=== PATIENT | male | born 1950 | race Caucasian/White ===

== ENCOUNTER 2018-09-07 11:19 | Day surgery (SDC) | payer OTHER ==
[~2018-09-07 11:19] MED LIST: Lactated Ringers 1,000 ML IV SCH
[2018-09-07] MEDS ORDERED: Midazolam 1 MG/ML 2 ML SDV ONE (11:57)
[2018-09-07] MEDS ORDERED: Propofol 200 MG/20 ML SDV ONE (11:57)
[2018-09-07] MEDS ORDERED: fentaNYL 100 MCG/2 ML SDV ONE (11:57)
--- NOTE | 2018-09-07 12:02 | PCM.PREANE ---
Preanesthetic Assessment - Anesthesia/Transfusion/Family Hx Anesthesia History: Prior Anesthesia Without Reaction Family History of Anesthesia Reaction: No Transfusion History: No Prior Transfusion(s) Intubation History: Unknown - Review of Systems General: No Symptoms Pulmonary: No Symptoms Cardiovascular: No Symptoms Gastrointestinal: No Symptoms, Other (h/o left colon polyp 3 years ago) Neurological: No Symptoms Other: Reports: None - Physical Assessment Height: 5 ft 10 in Weight: 79.379 kg ASA Class: 1 Mental Status: Alert & Oriented x3 Airway Class: Mallampati = 2 Dentition: Reports: Dentures (upper and lower) Thyro-Mental Finger Breadths: 3 Mouth Opening Finger Breadths: 3 ROM/Head Extension: Limited/Partial Lungs: Clear to Auscultation, Normal Respiratory Effort Cardiovascular: Regular Rate, Regular Rhythm - Allergies Allergies/Adverse Reactions: Allergies Allergy/AdvReac Type Severity Reaction Status Date / Time Penicillins Allergy Hives Verified 09/02/18 09:59 venom-honey bee Allergy Anaphylactic Verified 09/02/18 09:59 [bee venom (honey bee)] Shock - Blood Blood Available: No - Anesthesia Plan Pre-Op Medication Ordered: None - Acknowledgements Anesthesia Type Planned: MAC Pt an Appropriate Candidate for the Planned Anesthesia: Yes Alternatives and Risks of Anesthesia Discussed w Pt/Guardian: Yes Pt/Guardian Understands and Agrees with Anesthesia Plan: Yes PreAnesthesia Questionnaire HEENT History: Reports: Hard of Hearing, Other (See Below) Other HEENT History: has sourav hearing aids, reading glasses, has top and bottom dentures Cardiovascular History: Reports: None Respiratory History: Reports: None Gastrointestinal History: Reports: Colon Polyp Genitourinary History: Reports: None Musculoskeletal History: Reports: Fracture Other Musculoskeletal History: hx fx left wrist Neurological History: Reports: None Psychiatric History: Reports: None Endocrine/Metabolic History: Reports: None Hematologic History: Reports: None Immunologic History: Reports: None Oncologic (Cancer) History: Reports: None Dermatologic History: Reports: None - Infectious Disease History Infectious Disease History: Reports: Chicken Pox, Measles, Mumps, Shingles - Past Surgical History HEENT Surgical History: Reports: None Cardiovascular Surgical History: Reports: None Respiratory Surgical History: Reports: None GI Surgical History: Reports: Colonoscopy (about 3 years ago) Male Surgical History: Reports: None Endocrine Surgical History: Reports: None Neurological Surgical History: Reports: C-Spine Other Neurological Surgeries/Procedures: hx neck surgery, 3 level posterior cervical fusion (cadaver bone) Musculoskeletal Surgical History: Reports: Other (See Below) Other Musculoskeletal Surgeries/Procedures:: hx surgical repair of fx wrist, left hand surgery Oncologic Surgical History: Reports: None Dermatological Surgical History: Reports: None - SUBSTANCE USE Smoking Status *Q: Never Smoker Days Per Week of Alcohol Use: 7 Number of Drinks Per Day: 1 Total Drinks Per Week: 7 Recreational Drug Use History: No - HOME MEDS Home Medications: Home Meds EPINEPHrine [Epipen] 1 injection SUBCUT ASDIRECTED PRN 07/17/15 [History] Sildenafil Citrate [Viagra] 100 mg PO ASDIRECTED PRN 07/17/15 [History] - CURRENT (IN HOUSE) MEDS Current Meds: Current Medications Lactated Ringer's (Ringers, Lactated) 1,000 mls @ 125 mls/hr IV ASDIRECTED PAUL Discontinued Medications Fentanyl (Sublimaze) Confirm Administered Dose 100 mcg .ROUTE .STK-MED ONE Stop: 09/07/18 11:58 Midazolam HCl (Versed 1 Mg/Ml) Confirm Administered Dose 2 mg .ROUTE .STK-MED ONE Stop: 09/07/18 11:58 Propofol (Diprivan 20 Ml) Confirm Administered Dose 400 mg .ROUTE .STK-MED ONE Stop: 09/07/18 11:58
[2018-09-07] MEDS ORDERED: Glycopyrrolate 0.2 MG/ML SDV ONE (12:48)
--- NOTE | 2018-09-07 13:17 | PCM.OPNOTE ---
- General Post-Op/Procedure Note Date of Surgery/Procedure: 09/07/18 Operative Procedure(s): egd w bx. colonoscopy Findings: see dict [id number] Pre Op Diagnosis: anemia Post-Op Diagnosis: Same Anesthesia Technique: Moderate Sedation Primary Surgeon: Marcial Manzo Pathology: egd bx Complications: None Condition: Good
--- NOTE | 2018-09-07 13:38 | PCM.POSTAN ---
POST ANESTHESIA ASSESSMENT - MENTAL STATUS Mental Status: Alert - VITAL SIGNS Pulse Rate: 59 SaO2: 95 Resp Rate: 16 Blood Pressure: 117/73 Temperature: 36.2 C - RESPIRATORY Respiratory Status: Respiratory Rate WNL - CARDIOVASCULAR CV Status: Pulse Rate WNL - GASTROINTESTINAL GI Status: No Symptoms - PAIN Pain Score: 0 - POST OP HYDRATION Hydration Status: Adequate & Stable - OBSERVATIONS Free Text/Narrative:: Doing well. Ready for transfer to Phase 2.
--- NOTE | 2018-09-07 14:00 | OR ---
SURGEON: Marcial Manzo MD DATE OF PROCEDURE: 09/07/2018 PREOPERATIVE DIAGNOSES: Abdominal pain and anemia. PROCEDURES PERFORMED: Esophagogastroduodenoscopy with biopsy and colonoscopy. DESCRIPTION OF PROCEDURE: EGD: The patient was taken to the endoscopy room, and with the EMERY GRINDER, Diprivan was administered. A well-lubricated EGD scope was gently inserted through the oropharynx, down the esophagus, passing through the gastroesophageal junction, into the stomach. The mucosa was examined upon the passage. Any etiology will be noted. Once in the stomach, we continued to advance to the distal antrum, passed through the pylorus into the second portion of the duodenum. Again, the mucosa was examined for any abnormality and etiology. The scope was then retrieved back to the stomach and then retroflexed to look at the fundus of the stomach. If a biopsy was indicated, we will biopsy the antrum, body, and gastroesophageal junction. The air will be sucked out while the scope is retrieved to reduce the patient's discomfort. The patient tolerated the procedure well. There were no intraoperative complications. Dr. Manzo was present through the whole procedure. Prior to surgery, a time-out had been called, the patient identified, procedure identified and antibiotic administered. The patient was taken to the endoscopy room. A time out was called, patient identified, and procedure identified. Diprivan was then administrated. Patient went from awake to sleep, hearing doctor talking or door closing is normal. Perineum inspection and digital examination were then performed. A well- lubricated colonoscope was gently inserted through the rectum, advanced past the rectosigmoid junction, the descending colon, splenic flexure, transverse colon, hepatic flexure, ascending colon, arrived to the cecum. Cecum was identified as dictated in the finding. Then the scope was carefully withdrawn while attention was paid to the mucosal surface for any abnormality. Air will be sucked out during the scope withdrawal. At the rectum, retroflexed to examine any rectal diseases, fistula or hemorrhoids. Patient tolerated procedure well. There were no intraoperative complications, and Dr. Manzo was present throughout the whole procedure. FINDINGS: EGD findings: 1. The patient is easily sedated with EMERY GRINDER and Diprivan, the patient is soundly snoring. 2. Oropharynx and proximal esophagus are free of disease and no stricture or inflammation. GE junction at 40 shows very mild salmon-colored change, consistent with acid reflux, but very mild. Stomach rugae are normal in appearance. Antrum has mild gastritis. Duodenum is grossly normal in appearance. Retroflexed look at the fundus of stomach, there is a small hiatal hernia. Biopsy done at antrum, body, GE junction at 40 and sucked out the gas while scope pulling out. Colonoscopy findings: 1. The patient is easily sedated with EMERY GRINDER and Diprivan, the patient is soundly snoring. 2. Bowel prep was average to above average, very little liquid stool, no semi- formed stool. 3. Colon rather straightforward. Cecum indicated by ileocecal fold, one-to- one indentation, appendiceal orifice. Light emittance is not observed. Mucosa examined upon scope pulling out. The patient does not have diverticulosis, polyp, mass, growth, inflammation, stricture, ulceration, AV malformation, bleeding, none of those. The patient has a mild internal hemorrhoids, no external hemorrhoids. The patient would benefit from repeat colonoscopy in 10 years from today or if clinically indicated otherwise. PETE / JERARDO /[id number]
[2018-09-07 14:33] VITALS: BP 143/84
== END 2018-09-07 14:10 | disposition home or self-care (01) ==
LOC: MW.SDS 11:19
PROVIDERS: ATTEND Surgery
DX: D64.9 Anemia, unspecified (principal); K20.9 Esophagitis, unspecified; K44.9 Diaphragmatic hernia without obstruction or gangrene; K64.8 Other hemorrhoids; K31.89 Other diseases of stomach and duodenum; R10.9 Unspecified abdominal pain; Z88.0 Allergy status to penicillin; Z91.030 Bee allergy status; Z86.010 Personal history of colon polyps
CPT/HCPCS: 43239; 45378; J2001; J2250; J2704; J3010; J3490; J7120; 88305; 88312